=== PATIENT | male | born 1945 | race Hispanic/Latino ===

== ENCOUNTER 2017-05-04 10:35 | Emergency (ER) | payer MEDICARE ==
[2017-05-04 10:59] VITALS: RESP 18
--- NOTE | 2017-05-04 11:38 | C.PDOC ---
History Of Present Illness 71 y/o male sent to ED by Dr. Lopez for evaluation of hematuria. Patient reports he noticed hematuria for 4 days. Patient states he was seen by Dr. Lopez who prescribed abx, which he has been taking. Patient also reports intermittent mild suprapubic abdominal pain. Notes past medical history of bladder tumor. Denies fever, chills, radiation of pain, dysuria, nausea, vomiting, or diarrhea. Time Seen by Provider: 05/04/17 10:45 Chief Complaint (Nursing): Male Genitourinary History Per: Patient History/Exam Limitations: no limitations Onset/Duration Of Symptoms: Days Current Symptoms Are (Timing): Still Present Quality Of Discomfort: "Pain" Associated Symptoms: Urinary Symptoms. denies: Fever, Chills, Diarrhea Recent travel outside of the [place]: No Past Medical History Reviewed: Historical Data, Nursing Documentation, Vital Signs Vital Signs: Last Vital Signs Temp 98 F 05/04/17 16:33 Pulse 72 05/04/17 16:33 Resp 18 05/04/17 16:33 BP 132/76 05/04/17 16:33 Pulse Ox 99 05/04/17 18:43 - Medical History PMH: HTN, Hypercholesterolemia, Hyperthyroidism Family History: States: Unknown Family Hx - Social History Hx Alcohol Use: Yes Hx Substance Use: No - Immunization History Hx Tetanus Toxoid Vaccination: No Hx Influenza Vaccination: No Hx Pneumococcal Vaccination: No Review Of Systems Except As Marked, All Systems Reviewed And Found Negative. Constitutional: Negative for: Fever, Chills Cardiovascular: Negative for: Chest Pain Respiratory: Negative for: Cough, Shortness of Breath Gastrointestinal: Positive for: Abdominal Pain. Negative for: Nausea, Vomiting Genitourinary: Positive for: Hematuria. Negative for: Dysuria Skin: Negative for: Rash Neurological: Negative for: Headache, Dizziness Physical Exam - Physical Exam Appears: Non-toxic, No Acute Distress Skin: Normal Color, Warm, Dry Head: Atraumatic, Normacephalic Oral Mucosa: Moist Chest: Symmetrical Cardiovascular: Rhythm Regular Respiratory: Normal Breath Sounds, No Rales, No Rhonchi, No Wheezing Gastrointestinal/Abdominal: Soft, No Tenderness, No Guarding, No Rebound Back: Normal Inspection Extremity: Normal ROM, Capillary Refill (< 2 sec.) Neurological/Psych: Oriented x3, Normal Speech, Normal Cognition ED Course And Treatment - Laboratory Results Result Diagrams: 05/04/17 11:23 05/04/17 11:43 O2 Sat by Pulse Oximetry: 99 (RA) Pulse Ox Interpretation: Normal - CT Scan/US CT Abdomen/Pelvis Other Rad Studies (CT/US): Read By Radiologist, Radiology Report Reviewed CT/US Interpretation: FINDINGS: LOWER THORAX: Unremarkable. LIVER: Unremarkable. No gross lesion or ductal dilatation. GALLBLADDER AND BILE DUCTS : Unremarkable. PANCREAS: Unremarkable. No gross lesion or ductal dilatation. SPLEEN: Unremarkable. ADRENALS: Unremarkable. No mass. KIDNEYS AND URETERS: Tiny cortical cysts in left kidney. 8 mm mid left renal cortical cyst. Excretory phase images show slight irregularity of right upper pole renal calyx common nonspecific. Differential diagnosis may include urothelial neoplasm or papillary necrosis. Consider evaluation with ureteroscopy. No renal calculus. No hydronephrosis. Please note that expiratory urographic phase imaging of the distal portion of the right ureter is limited due to inadequate filling/distension. VASCULATURE: Unremarkable. No aortic aneurysm. BOWEL: Pancolonic diverticulosis. No evidence of diverticulitis. Mural thickening of the sigmoid colon likely due to chronic muscular hypertrophy. There is more focal circumferential mural thickening distal descending colon seen on series 6 , image 140 through 148. Possibly muscular hypertrophy but recommend evaluation with colonoscopy to rule out neoplastic disease. APPENDIX: Normal appendix. PERITONEUM: No ascites. 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 Hazy increased attenuation of the small bowel mesenteric with numerous shotty mesenteric lymph nodes. There is also focal soft tissue density seen along the posterior extent of this mesenteric panniculitis, again a nonspecific finding. LYMPH NODES: No retroperitoneal or pelvic lymphadenopathy. BLADDER: Poorly distended. Mural thickening likely due to inadequate distention. REPRODUCTIVE: Mild prostate enlargement. BONES: Very mild anterior wedge compression deformity of the T12 vertebra, age indeterminate. No other fracture. OTHER FINDINGS: None. IMPRESSION: Slight irregularity of the right upper pole renal calyx on expiratory phase imaging with loss of normal sharp foreign axial angles. This is a nonspecific finding and may reflect papillary necrosis or urothelial neoplasm. Consider evaluation with ureteroscopy. Nonspecific mesenteric panniculitis. See above. Pancolonic diverticulosis. Focal mural thickening of distal descending colon for which evaluation with colonoscopy is advised to exclude neoplastic disease. Mural thickening of the sigmoid colon likely due to chronic muscular hypertrophy. Progress Note: CT abdomen/pelvis, EKG, labs, urinalysis ordered and reviewed. Medical Decision Making Medical Decision Making: Dr. Lopez has examined the patient at bedside and states that the patient can be discharged home. Dr. Lopez has scheduled the patient for cystocopy in 2 days for the patient. On re-exam, the patient remains without pain and stable. Lungs are CTA, heart is RRR, abdomen is soft, non-tender and the patient is tolerating Po well. Ambulatory in the ED with steady gait. Follow up with the medical doctor within 1-2 days. Return if worsened. Disposition - Disposition Referrals: Juliana Lopez MD [Staff Provider] - Disposition: HOME/ ROUTINE Disposition Time: 15:54 Condition: GOOD Additional Instructions: Follow up with the medical doctor within 1-2 days. Return if worsened. Instructions: Acute Hematuria (ED) Forms: [facility] (Greek) - Clinical Impression Clinical Impression: Hematuria - PA / SLOT SUPERVISOR / Resident Statement MD/DO has reviewed & agrees with the documentation as recorded. - Scribe Statement The provider has reviewed the documentation as recorded by the Scribe SM All medical record entries made by the Scribe were at my direction and personally dictated by me. I have reviewed the chart and agree that the record accurately reflects my personal performance of the history, physical exam, medical decision making, and the department course for this patient. I have also personally directed, reviewed, and agree with the discharge instructions and disposition.
[2017-05-04 11:55] LABS: RBC URINE 3 /hpf (0-3); URINE BILIRUBIN NEGATIVE (NEGATIVE); URINE BLOOD NEGATIVE (NEGATIVE); URINE COLOR Yellow (YELLOW); URINE GLUCOSE (UA) NORMAL (Normal); URINE KETONE NEGATIVE (NEGATIVE); URINE LEUKOCYTE ESTERASE NEG Leu/uL (Negative); URINE PROTEIN NEGATIVE (NEGATIVE); URINE UROBILINOGEN NORMAL mg/dL (0.2-1.0); WBC URINE 1 /hpf (0-5)
[2017-05-04 11:59] LABS: BASO # 0.1 K/uL (0.0-0.2); BASO % 0.6 % (0.0-2.0); EOS # 0.1 K/uL (0.0-0.7); EOS % 1.1 % (0.0-4.0); HEMATOCRIT 47.2 % (35.0-51.0); LYMPH # 2.6 K/uL (1.0-4.3); LYMPH % 27.6 % (20.0-40.0); MEAN CELL VOLUME 91.7 fL (80.0-94.0); MEAN CORPUSCULAR HGB CONC 34.9 g/dL (33.0-37.0); MONO # 0.9 K/uL (0.0-0.8); MONO % 9.7 % (0.0-10.0); NRBC % 0.1 % (0.0-2.0); RED CELL DISTRIBUTION WIDTH 13.5 % (11.5-14.5); WHITE BLOOD COUNT 9.4 K/uL (4.8-10.8)
[2017-05-04 12:12] LABS: ALB/GLOB RATIO 1.4 (1.0-2.1); ALKALINE PHOSPHATASE 84 U/L (38-126); ALT/SGPT 50 U/L (21-72); AST/SGOT 35 U/L (17-59); BLOOD UREA NITROGEN 23 mg/dL (9-20); CALCIUM 8.8 mg/dl (8.6-10.4); CARBON DIOXIDE 26 mmol/L (22-30); CHLORIDE 98 mmol/L (98-107); GFR AFRICAN-AMERICAN > 60; GLUCOSE,RANDOM 110 mg/dL (75-110); SODIUM 135 mmol/L (132-148); TOTAL PROTEIN 7.7 g/dL (6.3-8.3)
[2017-05-04] MEDS ORDERED: Iodixanol 320 MG/ML 100 ML BOTTLE IV ONE (14:18)
--- NOTE | 2017-05-04 15:26 | CT ---
PROCEDURE: CT Abdomen and Pelvis with and without intravenous contrast HISTORY: hematuria, ? bladder mass COMPARISON: None. TECHNIQUE: Axial images of the abdomen were obtained in the pre contrast, portal venous and delayed phases of enhancement. Coronal and sagittal reformats were generated. Contrast dose: 100 mL Visipaque 320 Radiation dose: Total exam DLP = 1965.01 mGy-cm. This CT exam was performed using one or more of the following dose reduction techniques: Automated exposure control, adjustment of the mA and/or kV according to patient size, and/or use of iterative reconstruction technique. FINDINGS: LOWER THORAX: Unremarkable. LIVER: Unremarkable. No gross lesion or ductal dilatation. GALLBLADDER AND BILE DUCTS: Unremarkable. PANCREAS: Unremarkable. No gross lesion or ductal dilatation. SPLEEN: Unremarkable. ADRENALS: Unremarkable. No mass. KIDNEYS AND URETERS: Tiny cortical cysts in left kidney. 8 mm mid left renal cortical cyst. Excretory phase images show slight irregularity of right upper pole renal calyx common nonspecific. Differential diagnosis may include urothelial neoplasm or papillary necrosis. Consider evaluation with ureteroscopy. No renal calculus. No hydronephrosis. Please note that expiratory urographic phase imaging of the distal portion of the right ureter is limited due to inadequate filling/distension. VASCULATURE: Unremarkable. No aortic aneurysm. BOWEL: Pancolonic diverticulosis. No evidence of diverticulitis. Mural thickening of the sigmoid colon likely due to chronic muscular hypertrophy. There is more focal circumferential mural thickening distal descending colon seen on series 6, image 140 through 148. Possibly muscular hypertrophy but recommend evaluation with colonoscopy to rule out neoplastic disease. APPENDIX: Normal appendix. PERITONEUM: No ascites. 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 Hazy increased attenuation of the small bowel mesenteric with numerous shotty mesenteric lymph nodes. There is also focal soft tissue density seen along the posterior extent of this mesenteric panniculitis, again a nonspecific finding. LYMPH NODES: No retroperitoneal or pelvic lymphadenopathy. BLADDER: Poorly distended. Mural thickening likely due to inadequate distention. REPRODUCTIVE: Mild prostate enlargement. BONES: Very mild anterior wedge compression deformity of the T12 vertebra, age indeterminate. No other fracture. OTHER FINDINGS: None. IMPRESSION: Slight irregularity of the right upper pole renal calyx on expiratory phase imaging with loss of normal sharp foreign axial angles. This is a nonspecific finding and may reflect papillary necrosis or urothelial neoplasm. Consider evaluation with ureteroscopy. Nonspecific mesenteric panniculitis. See above. Pancolonic diverticulosis. Focal mural thickening of distal descending colon for which evaluation with colonoscopy is advised to exclude neoplastic disease. Mural thickening of the sigmoid colon likely due to chronic muscular hypertrophy.
[2017-05-04 16:34] VITALS: BP 132/76; PULSE 72; TEMP 98
[2017-05-04 18:43] VITALS: O2SAT 99
== END 2017-05-04 16:00 | disposition home or self-care (01) ==
LOC: C.ER 10:35
DX: R31.9 Hematuria, unspecified (principal); E78.00 Pure hypercholesterolemia, unspecified; I10 Essential (primary) hypertension
CPT/HCPCS: 74178; 80053; 81001; 85025; 85610; 85730; 87086; 99284; Q9967

== ENCOUNTER 2017-05-07 07:03 | Day surgery (SDC) | payer MEDICARE ==
[2017-05-07] MEDS ORDERED: Iohexol 240 (50 ml) ONE (09:53)
[2017-05-07] MEDS ORDERED: Lidocaine 2% Jelly (Uro-Jet) ONE ×2 (09:53→11:07)
[2017-05-07] MEDS ORDERED: cefTRIAXone IV 1 gm in Dextros 50 ML IVPB ONE (09:53)
[2017-05-07] MEDS ORDERED: Propofol 10 mg/ml Inj (20 ML) ONE ×3 (10:00→10:57)
[2017-05-07] MEDS ORDERED: Midazolam 2 MG/2 ML VIAL ONE (10:10)
[2017-05-07 10:20] VITALS: BMI 31.4
--- NOTE | 2017-05-07 11:20 | PCM.SURG1 ---
Surgeon's Initial Post Op Note - Surgeon's Notes Surgeon: Hemant Lopez Service Restorer Emergency: none Type of Anesthesia: General Mask Pre-Operative Diagnosis: History of bladder tumor. Hematuria Operative Findings: same. Abnormal bladder mucos. BPH. Filling defect L renal pelvis Post-Operative Diagnosis: same Operation Performed: Cystoscopy. Bilat RTG pyelogram. Bladder Bx's and fulg. BN bx and fulg. L uretroscopy, L ureteral stent insertion Specimen/Specimens Removed: urine. Baldder bx's Estimated Blood Loss: EBL {In ML}: 0 Blood Products Given: N/A Post-Op Condition: Good Date of Surgery/Procedure: 05/07/17 Time of Surgery/Procedure: 11:15
[2017-05-07] MEDS ORDERED: Gentamicin 160 MG in Sodium Chloride 0.9% 100 ML IVPB ONE (11:21)
[2017-05-07] MEDS ORDERED: Lactated Ringer's 1,000 ML IV SCH (11:30)
[2017-05-07] MEDS ORDERED: Oxycodone/Acetaminophen 5/325 mg Tab ONE (13:19)
[2017-05-07 13:29] VITALS: O2SAT 96
[2017-05-07] MEDS ORDERED: Oxycodone/Acetaminophen 5/325 mg Tab PO ONE (13:30)
--- NOTE | 2017-05-07 13:30 | RAD ---
HISTORY: HEMATURIA COMPARISON: No prior. FINDINGS: BOWEL: A solitary signs sales representative radiograph of the abdomen is submitted. The bowel gas pattern is unremarkable. No abnormal intra-abdominal calcifications are appreciated. No hepatic or splenic enlargement is seen. BONES: Normal. OTHER FINDINGS: None. IMPRESSION: No active disease.
--- NOTE | 2017-05-07 13:36 | RAD ---
PROCEDURE: Intraoperative fluoroscopy HISTORY: HEMATURIA COMPARISON: Not available TECHNIQUE: Intraoperative fluoroscopy was provided for bilateral retrograde pyelo ureteral atrophy and left ureteral stent insertion. Total time of fluoroscopy was 103.8 seconds. FINDINGS: Multiple fluoroscopic spot films are submitted. Films are on file for review. IMPRESSION: Fluoroscopy provided.
[2017-05-07 13:54] VITALS: BP 126/62; PULSE 70; RESP 20; TEMP 97.8
--- NOTE | 2017-05-07 15:23 | CON ---
UROLOGY CONSULTATION REQUESTING PHYSICIAN: LIZ Schuster. REASON FOR CONSULTATION: Hematuria. HISTORY OF PRESENT ILLNESS: The patient is in otherwise fair to good health. The patient presents with several-day history of hematuria. The patient developed hematuria on 05/01. He was seen in the office. The patient was treated with antibiotic therapy for possible urinary tract infection. The patient had initial improvement regarding his hematuria. However, the blood returned today. The patient reports total hematuria. There is no flank pain. No nausea or vomiting. No fever. The patient urinates with fair urinary stream. The patient has a history of bladder carcinoma. He has had no recent recurrence of the tumor. He has been followed with annual cystoscopy, and he has been with no evidence of recurrent tumor. The patient has a history of BPH as well. He previously was treated with Flomax. 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 He lives with his . He smokes. The patient has a history of hypertension, controlled with oral medications. There is no history of urolithiasis. No fever. No flank pain. No abdominal pain. PHYSICAL EXAMINATION: GENERAL: The patient is well-developed, well-nourished male, appearing his stated age. The patient is awake and alert. The patient is comfortable at present. ABDOMEN: Soft, nontender, mildly protuberant. Nondistended. No mass or organomegaly. BACK: No CVA tenderness. GENITALIA: Without inflammation. Prostate examination was performed 3 days ago and revealed BPH. IMPRESSION: Hematuria. DIFFERENTIAL DIAGNOSES: Include infection, urolithiasis, and/or neoplasia. LABORATORY DATA: Reviewed. The CT scan with and without contrast reviewed as well. The report indicates possible mucosal abnormality of a ____. This was not well demonstrated to me. There is no obstruction. There were no parenchymal renal tumors. There were no filling defects within the bladder. Prostatic enlargement is noted as well. RECOMMENDATIONS AND PLAN: Continue current medication therapy. Hydration. Schedule cystoscopy. I reviewed the findings with the patient and his family, I reviewed the findings as well with the ER staff. Further therapy to follow according to the patient's clinical course. Thank you for recommending the patient in Urology consultation. Juliana Lopez MD cc: Juliana Lopez MD [facility] # [id number]
--- NOTE | 2017-05-08 00:56 | OP ---
UROLOGY OPERATIVE REPORT PROCEDURE DATE: 05/07/2017 PREOPERATIVE DIAGNOSES: Hematuria, history of bladder tumor. POSTOPERATIVE DIAGNOSES: Hematuria, history of bladder tumor, abnormal bladder mucosa, prostatic enlargement, filling defect of left renal pelvis. OPERATING SURGEON: Juliana Lopez MD PROCEDURE: Cystoscopy. Bilateral retrograde pyelogram. Multiple bladder biopsies and fulguration. Bladder neck biopsy and fulguration. Left ureteroscopy. Insertion of left ureteral stent. OPERATING SURGEON: Dr. Juliana Lopez. PROCEDURE: As follows; the patient received perioperative antibiotics. The patient was placed in lithotomy position. Anesthesia was applied by the anesthesiologist. A 22-Moldovan cystoscope sheath was introduced under direct vision. Urethra, prostate and bladder were inspected. Procedure was performed under video endoscopic control as well as under fluoroscopic control. FINDINGS: The urethral caliber was noted to be normal. There were no mucosal lesions within the urethra. The prostatic urethra was occlusive secondary to predominantly lateral lobe hypertrophy. Prostatic urethra was 3.5 cm to 4 cm in length. There were no mucosal lesions within the prostate. There was abnormal mucosa at the bladder neck on the right. This mucosa was erythematous and slightly raised and granular. The bladder was noted to be mildly trabeculated. There were multiple sites of focally abnormal bladder mucosa. Mucosa was noted to be reddened. There were some slightly raised areas, although no typical papillary bladder tumors. The ureteral orifice, normal position and shape. There was no bladder stone. Occlusive tip retrograde ureteral pyelogram was performed. Iodinated contrast was instilled via cone tip catheter into right ureteral orifice. The ureter and kidney were viewed sequentially with fluoroscopy. The right retrograde pyelogram demonstrated mild scalloping of the right distal ureter. There were no filling defects. There was no obstruction noted. The collecting system was normal. The left retrograde pyelogram demonstrated no evidence of ureteral obstruction. There was a persistent filling defect approximately 3 to 4 mm in size involving the left renal pelvis between the middle and upper calyces laterally located. Mild obliquity was obtained with a foam and sponge. This filling defect persisted. The multiple sites of abnormal bladder mucosa were biopsied using cold cup biopsy forceps. Fulguration was performed with Ball electrode and electrocautery. Specimens were individually stent and labeled as the site of biopsy. Fulguration was performed with Ball electrode and electrocautery after each biopsy was performed. Hemostasis was complete. Biopsies were obtained from the bladder neck, floor of the bladder, posterior wall of the bladder as well. In view of the filling defect noted in the renal pelvis, ureteroscopy was performed. A 0.035-inch guidewire was inserted into the left ureteral orifice and passed up to level of kidney. A 7-Moldovan flexible ureteroscope was attempted to be passed over the guidewire. However, the ureteroscope could not be advanced beyond approximately 4 cm above the ureteral orifice. Ureteral dilation was performed with a 10-Moldovan double-lumen ureteral catheter and passed over the guidewire. A second guidewire was inserted. Thereafter, the 7-Moldovan ureteroscope passed easily into the distal ureter and into the mid ureter. However, the ureteroscope could not be advanced under fluoroscopic control or under video endoscopic control more proximal to approximately the L3-L4 level. The ureteroscope was removed. A 6-Moldovan multilength stent was inserted over the remaining guidewire. Proper stent position was confirmed with fluoroscopy and endoscopy. The guidewire was removed and stent was left in place. The bladder was then drained, cystoscope sheath removed. Rectal examination was performed. There was no abnormal pelvic mass fixation or induration. The prostate was supple and smooth approximately 25 to 30 g in size, without fixation, induration or nodularity. The patient tolerated procedure without complication. Juliana Lopez MD cc: Juliana Lopez MD
== END 2017-05-07 14:00 | disposition home or self-care (01) ==
LOC: C.SDS 07:03
PROVIDERS: ATTEND Urology
DX: D49.4 Neoplasm of unspecified behavior of bladder (principal); R31.0 Gross hematuria; N40.0 Benign prostatic hyperplasia without lower urinary tract symptoms
CPT/HCPCS: 52204; 74000; 82948; 87086; 88305; 88342; C1769; C1887; C2617; J0696; J1580; J2270; Q9966

== ENCOUNTER 2017-05-21 07:09 | Day surgery (SDC) | payer MEDICARE ==
[2017-05-21] MEDS ORDERED: Iohexol 240 (50 ml) ONE (09:21)
[2017-05-21] MEDS ORDERED: Lactated Ringer's 1,000 ML IV ONE (09:21)
[2017-05-21] MEDS ORDERED: Lidocaine 2% Jelly (Uro-Jet) ONE (09:22)
[2017-05-21] MEDS: cefTRIAXone IV 1 gm in Dextros 50 ML IVPB ONE ×2 (09:25→09:37)
[2017-05-21] MEDS ORDERED: Midazolam 2 MG/2 ML VIAL ONE (09:27)
[2017-05-21] MEDS ORDERED: Propofol 10 mg/ml Inj (20 ML) ONE (09:27)
[2017-05-21] MEDS ORDERED: Gentamicin 160 MG in Sodium Chloride 0.9% 100 ML IVPB ONE (09:30)
[2017-05-21] MEDS ORDERED: ePHEDrine 50 mg/ml Inj ONE (09:43)
[2017-05-21] MEDS ORDERED: HYDROmorphone 0.5 mg/0.5 ml ISec IVP PRN (10:40)
--- NOTE | 2017-05-21 10:54 | PCM.SURG1 ---
Surgeon's Initial Post Op Note - Surgeon's Notes Surgeon: aaron clement Seed And Fertilizer Specialist: none Type of Anesthesia: General LMA Pre-Operative Diagnosis: L renal pelvic filling defect. Hx of bladder ca Operative Findings: same. no tumor identified Post-Operative Diagnosis: same Operation Performed: cysto. L flexible uretro-renoscopy. L rtg pyelogram. L renal pelvic bx and fulg. insertion of L ureteral stent Specimen/Specimens Removed: urine. L renal pelvic bx Estimated Blood Loss: EBL {In ML}: 2 Blood Products Given: N/A Post-Op Condition: Good Date of Surgery/Procedure: 05/21/17 Time of Surgery/Procedure: 10:54
[2017-05-21 12:04] VITALS: TEMP 97
[2017-05-21 12:10] VITALS: BP 99/70; PULSE 73; RESP 18; O2SAT 97
--- NOTE | 2017-05-21 14:55 | RAD ---
Abdomen single frontal view History: Hematuria. Comparison: 05/07/2017 Findings: Left nephroureteral stent in place. Moderate fecal retention in the colon. Degenerative changes in the spine. Impression: Left nephro ureteral stent in place.
--- NOTE | 2017-05-21 15:26 | RAD ---
PROCEDURE: Intraoperative Fluoroscopy. HISTORY: HEMATURIA FINDINGS: Fluoroscopic assistance was provided for left nephroureteral stent
--- NOTE | 2017-05-25 11:59 | OP ---
PROCEDURE DATE: 05/21/2017 PREOPERATIVE DIAGNOSES: Left renal pelvic collecting system filling defect. Hematuria. History of bladder tumor. POSTOPERATIVE DIAGNOSES: No lesion within the left renal collecting system. Benign prostatic hypertrophy. PROCEDURE: Cystoscopy. Left ureterorenoscopy. Left retrograde pyelogram. Left renal pelvic biopsy and fulguration. Insertion of left ureteral stent. DESCRIPTION OF PROCEDURE: Procedure as follows. The patient received perioperative antibiotics. The patient was placed in lithotomy position. General anesthesia was administered via laryngeal mask airway. A 22-Hong Konger cystoscope sheath was introduced under direct vision. Urethra, prostate and bladder were inspected. FINDINGS: There was no stricture in the anterior urethra. There was evidence of prostatic enlargement, which was occlusive. There was no bladder tumor. There was no bladder stone. There was a healing site of previous bladder biopsy. The left ureteral stent was identified. The stent was grasped with rigid grasping forceps and brought out through the cystoscope sheath. A 0.035-inch guidewire was inserted into the stent and passed up to the level of the kidney. A second guidewire was inserted under cystoscopic control through the ureteral orifice up to the level of the kidney. Ureterorenoscopy was performed with 7-Hong Konger flexible ureteroscope. Ureteroscope was advanced over the guidewire. The ureterorenoscope was advanced under video endoscopic control as well as under fluoroscopic control up to the level of the kidney. Iodinated contrast dye was instilled through the ureteroscope. The collecting system was fully delineated. There was no evidence of filling defect at the site of the previous noted filling defect. The renal pelvis as well as the upper mid and lower calyces were all inspected. There was mild erythema noted at the site of the junction of the infundibulum of the middle calyces, corresponding to the site of the previously seen filling defect. A cold cup biopsy was performed with a 3-Hong Konger biopsy forceps. Multiple biopsies were obtained. Fulguration was performed with Ball electrode electrocautery. There was no papillary lesion identified. Further inspection of the calyces were performed. There was noted to be a small approximately 1 mm Andre's plaque located in the middle calyces. There was no free floating stone. There was no tumor. The ureteroscope was withdrawn under direct ureteroscopic control. There were no lesions within the ureter. Ureteral mucosa was normal and was intact. The ureteroscope was then removed. The cystoscope was back loaded over the remaining guidewire. A 6-Hong Konger multilength stent was inserted over the guidewire. Proper stent position was confirmed with fluoroscopy and endoscopy. The coil within the bladder was well formed. A distal suture was left to exit per urethra. The bladder was drained. Cystoscope and sheath were removed. The patient was returned to supine position. The patient tolerated the procedure without complication. Juliana Lopez MD
== END 2017-05-21 12:44 | disposition home or self-care (01) ==
LOC: C.SDS 07:09
PROVIDERS: ATTEND Urology
DX: N28.9 Disorder of kidney and ureter, unspecified (principal); R31.9 Hematuria, unspecified; N40.0 Benign prostatic hyperplasia without lower urinary tract symptoms; E11.9 Type 2 diabetes mellitus without complications; I10 Essential (primary) hypertension
CPT/HCPCS: 52332; 52354; 74000; 82948; 87086; 88307; 88342; C1758; C1769; C2617; J0696; J1580; J7120

== ENCOUNTER 2018-02-04 06:36 | Day surgery (SDC) | payer MEDICARE ==
[2018-01-31 09:12] VITALS: BMI 28.5
[2018-02-04] MEDS ORDERED: cefTRIAXone 1 gm 1 GM/100 ML BAG IVPB ONE (08:50)
[2018-02-04] MEDS ORDERED: Lidocaine 2% Jelly (Uro-Jet) ONE (08:50)
[2018-02-04] MEDS ORDERED: Iohexol 240 (50 ml) ONE (08:50)
[2018-02-04] MEDS ORDERED: Midazolam 2 MG/2 ML VIAL ONE (09:07)
[2018-02-04] MEDS ORDERED: Propofol 10 mg/ml Inj (20 ML) ONE (09:07)
[2018-02-04] MEDS ORDERED: HYDROmorphone 0.5 mg/0.5 ml ISec IVP PRN (10:41)
--- NOTE | 2018-02-04 11:02 | PCM.SURG1 ---
Surgeon's Initial Post Op Note - Surgeon's Notes Surgeon: Hemant Lopez Food Safety Officer: none Type of Anesthesia: General Endo, General LMA Pre-Operative Diagnosis: Hx of bladder tumor, Hx of filling defect L kidney Operative Findings: same. abnormal bladder mucosa. bph. abnormal L renal pelvic mucosa. L renal calculus, small. bph Post-Operative Diagnosis: same Operation Performed: cysto. bladder bx and fulg. bilat rtg pyelogram. L uretrorenoscopy. L renal pelvic bx and fulguration. L renal stone basketing. Stent insertion L. EUA Specimen/Specimens Removed: bladder bx. urine. renal pelvic bx. stone Estimated Blood Loss: EBL {In ML}: 0 Blood Products Given: N/A Post-Op Condition: Good Date of Surgery/Procedure: 02/04/18 Time of Surgery/Procedure: 10:45
[2018-02-04 12:00] VITALS: BP 128/76; PULSE 77; RESP 18; TEMP 98; O2SAT 100
--- NOTE | 2018-02-05 17:49 | RAD ---
PROCEDURE: HISTORY: As Above COMPARISON: TECHNIQUE: Total fluoroscopic time utilized during the procedure: 144.7 seconds. Total dose 3.37 mGy cm squared FINDINGS: Submitted images from the current procedure: 18 Please refer to the physician's notes performing the procedure. IMPRESSION: Less than 1 hour fluoroscopic time utilized during performance of the procedure
--- NOTE | 2018-02-05 19:00 | OP ---
Copied To: Juliana Lopez MD Attending MD: Juliana Lopez MD UROLOGY OPERATIVE REPORT PROCEDURE DATE: 02/04/2018 PREOPERATIVE DIAGNOSES: History of bladder tumor. History of left renal pelvic filling defect. POSTOPERATIVE DIAGNOSES: History of bladder tumor. History of left renal pelvic filling defect. No recurrent bladder tumor. Abnormal bladder mucosa. Left renal stone. Benign prostatic hypertrophy. PROCEDURES: Cystoscopy. Bilateral retrograde ureteropyelogram. Bladder biopsy and fulguration. Left ureterorenoscopy. Left renal pelvic biopsy and fulguration. Left renal stone basketing. Insertion of left ureteral stent. Examination under anesthesia. OPERATING SURGEON: Juliana Lopez MD DESCRIPTION OF PROCEDURE: As follows: The patient received perioperative antibiotics. The patient was placed in lithotomy position. General anesthesia was administered by the anesthesiologist. The genitalia prepped and draped sterilely. Procedure was performed under video endoscopic control as well as under fluoroscopic control. The 22-[place] cystoscope sheath was introduced under direct vision. Urethra, prostate, and bladder were inspected with 30-degree and 70-degree lenses. FINDINGS: There was no stricture of the anterior urethra. There was evidence of trilobar prostatic hypertrophy. Prostatic urethra was 3.5 cm in length and occlusive. The bladder was inspected. The ureteral orifices were normal in position and shape. There were areas of abnormal bladder mucosa. Biopsies were obtained and fulguration was performed. The areas were erythematous, although not indicative of the grave papillary bladder tumors. The retrograde ureteropyelogram was performed. Iodinated contrast dye was instilled via cone-tip catheter into each ureteral orifice. The ureters and kidneys were viewed sequentially with fluoroscopy. The right retrograde pyelogram demonstrated no evidence of filling defect or obstruction. Left retrograde pyelogram demonstrated no evidence of ureteral obstruction. There was mild fullness of the left collecting system on some views. At first, the filling defect was not identified. On subsequent views, the filling defect was noted. There was approximately a 5 to 6-mm filling defect involving the lateral aspect of the pelvis at the junction of the mid and upper pole calyceal system. A 0.035-inch guidewire was inserted into the left ureteral orifice and passed up to level of kidney. A second guide was inserted as well. The 10-[place]izen [place] double-lumen ureteral catheter was inserted over the guidewire. Ureterorenoscopy was performed with the 7-[place]izen [place] flexible ureteroscope. The ureteroscope was passed over the working wire under both fluoroscopic control as video endoscopic control. The ureteroscope was passed in atraumatic fashion up to the kidney. The kidney was inspected. Each calyx was inspected. There was noted to be slightly erythematous mucosa in the area of the filling defect. There was no papillary tumors. There was noted to be a small stone approximately 3 mm in size fixed on the mucosa at that same point. The stone was dislodged and subsequently removed with the 0 tip basket. The stone was fragmented during its removal. The area of the abnormal mucosa was biopsied using the 3-[place]izen [place] cold cup biopsy forceps. Fulguration was performed with Ball electrode and electrocautery. Hemostasis was complete. The renal pelvis and lower and mid and upper calyces were again reinspected. There were no other lesions identified. The ureteroscope was removed under direct visual control. There was no ureteral injury. There was no ureteral obstruction or mucosal abnormality. A 6-[place] multi-length stent was inserted over the remaining guidewire. Proper stent position was confirmed with fluoroscopy and endoscopy. The distal string was left to exit per urethra from the stent. The bladder was drained. Cystoscope and sheath removed. Exam under anesthesia was performed. There was no abnormal pelvic mass, fixation, or induration. Prostate was supple and smooth without fixation, induration, or nodularity. The patient tolerated the procedure without complication. Juliana Lopez MD cc: Young Oliveira MD
== END 2018-02-04 12:32 | disposition home or self-care (01) ==
LOC: C.SDS 06:36
PROVIDERS: ATTEND Urology
DX: N20.0 Calculus of kidney (principal); N40.0 Benign prostatic hyperplasia without lower urinary tract symptoms; Z85.51 Personal history of malignant neoplasm of bladder; E11.9 Type 2 diabetes mellitus without complications; Z79.84 Long term (current) use of oral hypoglycemic drugs; I10 Essential (primary) hypertension
CPT/HCPCS: 52007; 52204; 74018; 82365; 82948; 87086; 88104; 88300; 88305; C1725; C1758; C1769; J0696; J1170

== ENCOUNTER 2018-07-23 08:24 | Outpatient (CLI) | payer MEDICARE | END 2018-07-23 08:25 | disposition home or self-care (01) | LOC: C.PAT 08:24 | DX: C67.9 Malignant neoplasm of bladder, unspecified (principal); Z01.818 Encounter for other preprocedural examination ==

== ENCOUNTER 2018-08-05 05:52 | Day surgery (SDC) | payer MEDICARE ==
[2018-07-23 08:36] VITALS: BMI 28.1
[2018-08-05] MEDS ORDERED: Iohexol 240 (50 ml) ONE (07:40)
[2018-08-05] MEDS ORDERED: cefTRIAXone 1 gm 1 GM/100 ML BAG IVPB ONE (07:40)
[2018-08-05] MEDS ORDERED: Lidocaine 2% Jelly (Uro-Jet) ONE (07:41)
[2018-08-05] MEDS ORDERED: Midazolam 2 MG/2 ML VIAL ONE (07:46)
[2018-08-05] MEDS ORDERED: Propofol 10 mg/ml Inj (20 ML) ONE (07:46)
[2018-08-05] MEDS ORDERED: Lidocaine Hydrochloride 5 ML INJ ONE (07:46)
--- NOTE | 2018-08-05 08:51 | PCM.SURG1 ---
Surgeon's Initial Post Op Note - Surgeon's Notes Surgeon: Hemant Lopez Associate Professor Of Art History: none Type of Anesthesia: General LMA Pre-Operative Diagnosis: Hx of bladder ca. Hx of renal pelvic ca Operative Findings: bladder cancer. Abnormal bladder mucosa. Normal rtg pyeolgram. BPH Post-Operative Diagnosis: same Operation Performed: cysto. bilt rtg pyelogram. bladder bx's and fulg. TUR- BT. EUA Specimen/Specimens Removed: bladder bx's. Bladder tumor. urine Estimated Blood Loss: EBL {In ML}: 0 Blood Products Given: N/A Post-Op Condition: Good Date of Surgery/Procedure: 08/05/18 Time of Surgery/Procedure: 08:40
[2018-08-05] MEDS ORDERED: HYDROmorphone 0.5 mg/0.5 ml ISec IVP PRN (09:10)
[2018-08-05] MEDS ORDERED: Lactated Ringer's 1,000 ML IV SCH (09:15)
[2018-08-05] MEDS ORDERED: Lactated Ringer's 500 ML IV ONE (10:04)
[2018-08-05 10:11] VITALS: PULSE 63; RESP 9; TEMP 97.5
[2018-08-05 10:22] VITALS: BP 118/69; O2SAT 98
--- NOTE | 2018-08-05 18:04 | RAD ---
Date of service: 08/05/2018 PROCEDURE: Intraoperative Fluoroscopy. HISTORY: HX Bladder Ca FINDINGS: Fluoroscopic assistance was provided for bilateral retrograde. Please refer to the operative report from Dr. GUO, DAVY. Total fluoroscopic time (continuous mode) utilized during the procedure 11.7 seconds. Dose report: DLP 0.158 (mGy/m2)
--- NOTE | 2018-08-11 20:16 | OP ---
PROCEDURE DATE: 08/05/2018 PREOPERATIVE DIAGNOSES: History of bladder carcinoma, history of left renal pelvic tumor. POSTOPERATIVE DIAGNOSES: History of bladder carcinoma, history of left renal pelvic tumor. No renal pelvic tumor. Recurrent bladder carcinoma at present. PROCEDURES: 1. Cystoscopy. 2. Bilateral retrograde pyelogram. 3. Transurethral resection of bladder tumor. OPERATING SURGEON: Juliana Lopez MD DESCRIPTION OF PROCEDURE: As follows: Exam under anesthesia. The patient was placed in lithotomy position. Genitalia prepped and draped sterilely. Anesthesia was provided by the anesthesiologist. Procedure was performed under fluoroscopic control as well as video endoscopic control. The patient was placed in lithotomy position. The patient received perioperative antibiotics. Anesthesia was provided by the anesthesiologist. The genitalia prepped and draped sterilely. A 22-[place] cystoscope sheath was introduced under direct vision. The urethra, prostate, and bladder were inspected with 30-degree and 70-degree lenses. FINDINGS: There was no stricture in the anterior urethra. There was evidence of trilobar prostatic hypertrophy. There was predominantly lateral lobe prostatic hypertrophy. Prostatic urethra was 4 cm in length and occlusive. There were no mucosal lesions within the urethra or within the prostatic urethra. There was no bladder neck contraction. There was moderate bladder trabeculation. The ureteral orifice was normal in position and shape. There was a papillary bladder tumor slightly to the right of midline located towards the anterior wall of the bladder. There were also areas of focal erythema. Retrograde ureteral pyelogram was performed. Iodinated contrast dye was instilled via cone-tip catheter into each ureteral orifice. The ureter and the kidneys were viewed sequentially under fluoroscopic control. There was no evidence of filling defect. There was no evidence of obstruction. There was good drainage noted on the post drainage films. The area of the abnormal mucosa was biopsied using cold cup biopsy forceps. Fulguration was performed with Ball electrode and electrocautery. The cystoscope and sheath were removed. A continuous flow 26-[place] resectoscope sheath was introduced under direct vision using the visual obturator. The resection of the bladder tumor was performed. The tumor was papillary approximately 2 to 3 cm in size. There were no other lesions within the bladder. The tumor was fully resected. The base was resected as well. Hemostasis was achieved. Specimen was sent for bacteriologic examination. The resectoscope and sheath were removed. Baron catheter was inserted. Bladder drainage was clear. Exam under anesthesia/bimanual examination/anorectal examination was performed. The examination was performed in view of the patient's history of bladder carcinoma. There was no mass fixation or induration of the bladder detected. Prostate was smooth and firm approximately 40 g size, without fixation, induration, or nodularity. The patient was returned to supine position. The patient tolerated the procedure without complication. [place] MD Jessica cc: Young Oliveira MD
== END 2018-08-05 10:35 | disposition home or self-care (01) ==
LOC: C.SDS 05:52
PROVIDERS: ATTEND Urology
DX: C67.0 Malignant neoplasm of trigone of bladder (principal); C67.9 Malignant neoplasm of bladder, unspecified; Z85.53 Personal history of malignant neoplasm of renal pelvis
CPT/HCPCS: 52005; 52235; 82948; 87086; 88104; 88305; C1758; J0696; J7120; Q9966